=== PATIENT | female | born 1985 | race Caucasian/White ===

== ENCOUNTER 2019-04-01 14:20 | Emergency (ER) | payer BC ==
[~2019-04-01] VITALS: Ht 154.9 cm; Wt 54.4 kg
--- NOTE | 2019-04-01 14:25 | NUR ---
CALLED FOR TRIAGE AND UNABLE TO LOCATE PT IN WAITING ROOM
--- NOTE | 2019-04-01 14:36 | NUR ---
CALLED FOR TRIAGE, UNABLE TO LOCATE PT IN ER WAITING ROOM
--- NOTE | 2019-04-01 15:05 | NUR ---
RETURNED FROM OUTSIDE AND IS NOW IN WAITING ROOM, WILL TRIAGE
[2019-04-01 15:10] VITALS: BP_SYST 234
--- NOTE | 2019-04-01 15:35 | NUR ---
ER Dr. Juarez at bedside examining patient.
--- NOTE | 2019-04-01 15:35 | NUR ---
ECG done at bedside as ordered by Dr. Juarez. Patient tolerated the procedure well. Report given to .
[2019-04-01] MEDS ORDERED: METOPROLOL TARTRATE 5 MG/5 ML VIAL IVP ONE (16:00)
--- NOTE | 2019-04-01 16:20 | NUR ---
# 20 gauge angiocath placed to left wrist. Use of asceptic technique. Opsite placed over site. Blood return noted. Flushed with 10 cc of normal saline. No evidence of infiltration noted. Patient tolerated well.
--- NOTE | 2019-04-01 16:20 | NUR ---
Administered Metoprolol IVP as ordered by Dr. Juarez. Patient tolerated the medication well.
--- NOTE | 2019-04-01 16:24 | NUR ---
ER Dr. Juarez at bedside re-examining patient.
[2019-04-01 16:26] LABS: BASOPHILS % (AUTO) 0.4 % (0.0-2.0); EOSINOPHILS % (AUTO) 0.1 % (0.0-4.0); HEMATOCRIT 35.2 % (36-48); HEMOGLOBIN 11.3 g/dL (12.0-16.0); LYMPHOCYTES # (AUTO) 1.8 K/uL (1.0-5.5); MEAN CORPUSCULAR HEMOGLOBIN 24 pg (27-31); MEAN CORPUSCULAR HGB CONC 32 % (32-36); MEAN CORPUSCULAR VOLUME 74 fL (79.0-98.0); MONOCYTES # (AUTO) 1.1 K/uL (0.0-1.0); MONOCYTES % (AUTO) 10.3 % (1.7-9.3); NEUTROPHILS % (AUTO) 73.2 % (40.0-70.0); PLATELET COUNT (AUTO) 532 K/uL (130-430); RED BLOOD CELL COUNT(AUTO) 4.77 MIL/uL (4.2-6.2); RED CELL DISTRIBUTION WIDTH 17.3 % (9.0-15.0); WHITE BLOOD COUNT (AUTO) 10.9 K/uL (4.8-10.8)
[2019-04-01 16:28] LABS: CALCIUM 7.6 mg/dL (8.4-11.0); CREATININE 0.75 mg/dL (0.55-1.30); POTASSIUM 3.4 mmol/L (3.5-5.1)
[2019-04-01 16:42] LABS: ALBUMIN 3.5 g/dL (3.4-4.8); THYROID STIMULATING HORMONE 3.78 uIu/mL (0.36-3.74); TOTAL BILIRUBIN 0.3 mg/dL (0.0-1.0)
--- NOTE | 2019-04-01 16:58 | NUR ---
Patient is resting comfortably in bed. BP 216/147 HR 92. Denied any headaches, blurry vision or chest pain. Patient is speaking in full sentences. Dad at bedside.
[2019-04-01] MEDS ORDERED: LORazepam 2 MG/ML VIAL IVP ONE (17:00)
--- NOTE | 2019-04-01 17:11 | NUR ---
Administered Lorazepam 2mg IVP as ordered by Dr. Juarez. Patient tolerated the medications well.
--- NOTE | 2019-04-01 17:36 | NUR ---
Patient is resting comfortably in bed, BP 189/137 HR 77. Father at bedside.
[2019-04-01] MEDS ORDERED: cloNIDine HCL 0.1 MG TABLET PO ONE (18:00)
[2019-04-01] MEDS ORDERED: hydrALAZINE HCL 20 MG/ML VIAL IVP ONE (18:30)
[2019-04-01 19:07] VITALS: BP_SYST 150
--- NOTE | 2019-04-01 19:09 | NUR ---
Patient given written and verbal discharge instructions and verbalizes understanding. ER MD discussed with patient the results and treatment provided. Patient in stable condition. ID arm band removed. IV catheter removed intact and dressing applied, no active bleeding. Rx of Losartan given. Patient educated on pain management and to follow up with PMD. Pain Scale 0/10. Opportunity for questions provided and answered. Medication side effect fact sheet provided.
== END 2019-04-01 19:09 | disposition home or self-care (01) ==
LOC: SED 14:20
DX: I10 Essential (primary) hypertension (principal); F41.9 Anxiety disorder, unspecified; Z88.6 Allergy status to analgesic agent
CPT/HCPCS: 36415; 80053; 84443; 85025; 93005; 96374; 96375; 99284; J0360; J2060; J3490